=== PATIENT | female | born 1990 | race African-American/Black ===

== ENCOUNTER 2016-08-16 15:41 | Emergency (ER) | payer SELFPAY ==
[2016-08-16 15:51] VITALS: BP 110/80; BMI 21.2
--- NOTE | 2016-08-16 16:47 | DR.GENAD ---
HPI - PCP Primary Care Physician: NFD - HPI Comment HPI Comment: GETTING WORDE. SLIGHT DIZZINESS PRESENT. DENIES SINUS SYMTOMS. NO FEVER. - Complaint/Symptoms Chief Complaint Doctors Comments: LATE PERIOD, WEAKNESS AND BLURRED VISION TIMES ONE DAY. Chief Complaint:: "I HAVE BEEN HAVING BLURRY VISION. I FEEL LIKE I CAN'T STAND FOR LONG, LIKE I'M WEAK. I HAVEN'T HAD A PERIOD SINCE 2016." - Nurses notes reviewed Nurses Notes Review: Yes - Source History Provided: Patient - Mode of Arrival Mode of Arrival: Ambulatory - Timing Onset of Chief Complaint: 08/15/16 Came on: Suddenly - Duration Duration: Constant Duration: Days - Severity Severity: Moderate PMH - PMH Past Medical History: Yes Past Medical History: Hypertension Past Surgical History: No Surgical History: No History - Family History History of Family Medical Conditions: Yes Family Medical History: Diabetes Mellitus, Cancer, Hypertension - Social History Does patient currently use any type of tobacco product: Yes Have you used tobacco products in the last 12 months: Yes Type of Tobacco Use: Cigarettes How many years tobacco product used: 7 Does any household member use tobacco: No Alcohol Use: Occasionally Do you use any recreational Drugs:: No Lives With: Family Lives Where: Home - infectious screening In the last 2 months have you had wt loss of >10#?: NO Have you had fever, night sweats or hemotysis?: No Have you traveled outside the country in the last 6 months?: No Isolation: Standard ROS - Review of Systems Constitutional: Weakness, Fatigue. negative: Chills, Fever Eyes: No Symptoms Reported ENTM: No Symptoms Reported Respiratoy: No Symptoms Reported Cardiovascular: No Symptoms Reported Gastrointestinal/Abdominal: Nausea Genitourinary: No Symptoms Reported Neurological: Weakness, Dizziness Musculoskeletal: Muscle Pain Integumentary: No Symptoms Reported Hematologic/Lymphatic: No Symptoms Reported Endocrine: No Symptoms Reported All Other Systems: Reviewed and Negative PE - Vital Signs Vitals: Temperature 99.8 F Pulse Rate 109 Respiratory Rate 18 Blood Pressure [Left Arm] 110/68 Blood Pressure [Right Arm] 113/56 Blood Pressure 110/80 O2 Sat by Pulse Oximetry 100 - General Limitations: No Limitations General Appearance: Alert - Head Head Exam: Normal Inspection - Eyes Eye exam: Normal Appearance - ENT ENT Exam: Normal External Ear Exam External Ear Exam: Normal External Inspection TM/Canal Exam: Bilateral Normal Nose Exam: Normal Nose Exam Mouth Exam: Normal Inspection Throat Exam: Normal Inspection - Neck Neck Exam: Trachea Midline (`) - Chest Chest Inspection: Symmetric Chest Wall Rise - Respiratory Respiratory Exam: Normal Lung Sounds Bilat Respiratory Exam: Bilateral Clear to Auscultation - Cardiovascular Cardiovascular Exam: Regular Rate, Normal Rhythm, Normal Heart Sounds - Abdominal Exam Abdominal Exam: Normal Bowel Sounds, Soft. negative: Tenderness - Extremities Extremities Exam: Normal Inspection - Back Back Exam: Normal Inspection - Neurologic Neurological Exam: Alert, Oriented X3 - Psychiatric Psychiatric Exam: Normal Affect, Normal Mood - Skin Skin Exam: Normal Color MDM - Differential Diagnosis Differential Diagnosis: WEAKNESS, LATE PERIOD, DIZZINESS Course - Treatment Treatment: SEE ORDERS - Education/Counseling Education/Counseling: Patient, Education Educated On: Diagnosis, Needs for Follow Up ROR - Labs Reviewed Laboratory Results Reviewed?: Yes Result Diagrams: 08/16/16 17:00 08/16/16 17:00 Laboratory: WBC 6.2 X10^3/uL (3.6-10.0) 08/16/16 17:00 RBC 4.60 X10^6/uL (3.5-5.4) 08/16/16 17:00 Hgb 13.0 g/dL (12.0-16.0) 08/16/16 17:00 Hct 39.3 % (36.0-47.0) 08/16/16 17:00 MCV 85.3 fL (80.0-100.0) 08/16/16 17:00 MCH 28.2 pg (27.0-34.0) 08/16/16 17:00 MCHC 33.0 g/dL (33.0-35.0) 08/16/16 17:00 RDW 15.0 % (11.6-16.5) 08/16/16 17:00 Plt Count 245 X10^3/uL (150.0-450.0) 08/16/16 17:00 MPV 9.3 fL (7.4-11.0) 08/16/16 17:00 Neut % 50.0 % (42.0-75.0) 08/16/16 17:00 Lymph % 41.2 % (21.0-51.0) 08/16/16 17:00 [place] % 6.4 % (0.0-13.0) 08/16/16 17:00 Eos % 1.2 % (0.9-2.9) 08/16/16 17:00 Baso % 1.2 % (0.2-1.0) H 08/16/16 17:00 Neut # 3.1 x10^3/uL (2.2-4.8) 08/16/16 17:00 Lymph # 2.6 X10^3/uL (1.3-2.9) 08/16/16 17:00 [place] # 0.4 x10^3/uL (0.3-0.8) 08/16/16 17:00 Eos # 0.1 x10^3/uL (0.0-0.2) 08/16/16 17:00 Baso # 0.1 X10^3/uL (0.0-0.1) 08/16/16 17:00 Absolute Nucleated RBC 0.0 /100WBC 08/16/16 17:00 Sodium 141 mmol/L (136-145) 08/16/16 17:00 Corrected Sodium TNP 08/16/16 17:00 Potassium 3.9 mmol/L (3.5-5.1) 08/16/16 17:00 Chloride 105 mmol/L (98-107) 08/16/16 17:00 Carbon Dioxide 25.0 mmol/L (21-32) 08/16/16 17:00 BUN 10 mg/dL (7-18) 08/16/16 17:00 Creatinine 0.79 mg/dL (0.55-1.02) 08/16/16 17:00 Est GFR (MDRD) Af Amer > 60 (>60) 08/16/16 17:00 Est GFR (MDRD) Non-Af > 60 (>60) 08/16/16 17:00 Glucose 78 mg/dL (65-99) 08/16/16 17:00 Calcium 8.7 mg/dL (8.5-10.1) 08/16/16 17:00 Corrected Calcium TNP 08/16/16 17:00 Total Bilirubin 1.00 mg/dL (0.2-1.0) 08/16/16 17:00 AST 20 Units/L (15-37) 08/16/16 17:00 ALT 27 Units/L (12-78) 08/16/16 17:00 Alkaline Phosphatase 64 Units/L (46-116) 08/16/16 17:00 Total Protein 8.1 g/dL (6.4-8.2) 08/16/16 17:00 Albumin 4.0 g/dL (3.4-5.0) 08/16/16 17:00 Globulin 4.1 g/dL (2.5-4.5) 08/16/16 17:00 Albumin/Globulin Ratio 1.0 Ratio (1.1-2.1) L 08/16/16 17:00 HCG, Qual Negative <10 mIU/mL 08/16/16 17:00 Influenza A (H1N1) PCR Not detected (NOT DETECT) 08/16/16 17:38 Influenza Type A (PCR) Negative (NEGATIVE) 08/16/16 17:38 Influenza Type B (PCR) Negative (NEGATIVE) 08/16/16 17:38 - Diagnosis Discharge Problem: Weakness, Dizziness, Late period - Discharge Plan Disposition: 01 HOME, SELF-CARE Condition: Stable - Follow ups/Referrals Follow ups/Referrals: NFD,None [Primary Care Provider] - 3 days - Instructions Instructions: Weakness, [id number] Additional Instructions: RETURN TO ED IF WORSE.
[2016-08-16 17:13] LABS: BASOPHILS # (AUTO) 0.1 X10^3/uL (0.0-0.1); BASOPHILS % (AUTO) 1.2 % (0.2-1.0); EOSINOPHILS # (AUTO) 0.1 x10^3/uL (0.0-0.2); EOSINOPHILS % (AUTO) 1.2 % (0.9-2.9); HEMATOCRIT 39.3 % (36.0-47.0); LYMPHOCYTES # (AUTO) 2.6 X10^3/uL (1.3-2.9); LYMPHOCYTES % (AUTO) 41.2 % (21.0-51.0); MEAN CORPUSCULAR HEMOGLOBIN 28.2 pg (27.0-34.0); MEAN CORPUSCULAR VOLUME 85.3 fL (80.0-100.0); MEAN PLATELET VOLUME 9.3 fL (7.4-11.0); MONOCYTES # (AUTO) 0.4 x10^3/uL (0.3-0.8); MONOCYTES % (AUTO) 6.4 % (0.0-13.0); NEUTROPHILS # (AUTO) 3.1 x10^3/uL (2.2-4.8); PLATELET COUNT 245 X10^3/uL (150.0-450.0); WHITE BLOOD COUNT 6.2 X10^3/uL (3.6-10.0)
[2016-08-16 17:21] LABS: ALANINE AMINOTRANSFERASE 27 Units/L (12-78); ALKALINE PHOSPHATASE 64 Units/L (46-116); ASPARTATE AMINO TRANSFERASE 20 Units/L (15-37); BLOOD UREA NITROGEN 10 mg/dL (7-18); CALCIUM 8.7 mg/dL (8.5-10.1); CHLORIDE 105 mmol/L (98-107); CREATININE 0.79 mg/dL (0.55-1.02); GLUCOSE 78 mg/dL (65-99); SODIUM 141 mmol/L (136-145); TOTAL PROTEIN 8.1 g/dL (6.4-8.2); eGFR BLACK RACES > 60 (>60); eGFR NON BLACK RACES > 60 (>60)
[2016-08-16 17:22] LABS: SERUM PREGNANCY TEST, QUAL NEGATIVE <10 mIU/mL
== END 2016-08-16 17:45 | disposition home or self-care (01) ==
LOC: ER 15:59
DX: R53.1 Weakness (principal); R42 Dizziness and giddiness; N92.5 Other specified irregular menstruation
CPT/HCPCS: 36415; 80053; 84703; 85025; 87502; 87503; 99282; 99283

== ENCOUNTER 2016-11-22 07:02 | Emergency (ER) | payer SELFPAY ==
[2016-11-22 07:08] VITALS: BP 121/71; BMI 21.1
[2016-11-22] MEDS ORDERED: CIPRODEX OTIC DROPS (EAR) ONE (07:40)
--- NOTE | 2016-11-22 07:49 | DR.GENAD ---
HPI - PCP Primary Care Physician: MARCO A - HPI Comment HPI Comment: Right ear pain - Complaint/Symptoms Chief Complaint Doctors Comments: Right ear pain since 02:30 hrs this a.m. It is a sharp pain. She admitted to associated brownish drainage earlier. She denies fever. Chief Complaint:: PATIENT STATED THAT HER LEFT EYE IS KILLING HER. SHE STATED THAT IT IS DRAINING AND IS HURTING DOWN INTO HER THROAT. Self Treatment fo Chief Complaint: none - Nurses notes reviewed Nurses Notes Review: Yes - Source History Provided: Patient - Mode of Arrival Mode of Arrival: Ambulatory - Timing Onset of Chief Complaint: 11/22/16 Came on: Gradually - Duration Duration: Since Onset How lon Duration: Hours - Location Location: Right ear - Severity Severity: Moderate - Modifying Factors Worsens:: none Improves:: none - Associated Signs and Symptoms Associated Signs and Symptoms: ear discharge PMH - PMH Past Medical History: No Past Medical History: Hypertension Past Surgical History: No Surgical History: No History - Family History History of Family Medical Conditions: Yes Family Medical History: Diabetes Mellitus, Cancer, Hypertension - Social History Does patient currently use any type of tobacco product: Yes Have you used tobacco products in the last 12 months: Yes Type of Tobacco Use: Cigarettes Packs per day or dips/chews per day: 6 cigarrettes per day Does any household member use tobacco: No Alcohol Use: None Do you use any recreational Drugs:: No Lives Where: Home - infectious screening In the last 2 months have you had wt loss of >10#?: NO Have you had fever, night sweats or hemotysis?: No Have you traveled outside the country in the last 6 months?: No Isolation: Standard ROS - Review of Systems Constitutional: No Symptoms Reported Eyes: No Symptoms Reported ENTM: Ear Pain (right ), Ear Discharge (right) Respiratoy: No Symptoms Reported Cardiovascular: No Symptoms Reported Gastrointestinal/Abdominal: No Symptoms Reported Genitourinary: No Symptoms Reported Neurological: No Symptoms Reported Musculoskeletal: No Symptoms Reported Integumentary: No Symptoms Reported Hematologic/Lymphatic: No Symptoms Reported Endocrine: No Symptoms Reported Psychiatric: No Symptoms Reported PE - Vital Signs Vitals: Temperature 98.0 F Pulse Rate 110 Respiratory Rate 20 Blood Pressure [Left Arm] 110/68 Blood Pressure [Right Arm] 113/56 Blood Pressure 121/71 O2 Sat by Pulse Oximetry 100 - General Limitations: No Limitations General Appearance: Alert, In No Apparent Distress - Head Head Exam: Normal Inspection - Eyes Eye exam: Normal Appearance, PERRL, EOMI - ENT ENT Exam: Normal Exam, Normal Oropharynx External Ear Exam: Normal External Inspection TM/Canal Exam: Left Normal, Right Erythema, Right Bulging Nose Exam: Normal Nose Exam Mouth Exam: Normal Inspection Throat Exam: Normal Inspection - Neck Neck Exam: Normal Inspection - Chest Chest Inspection: Normal Inspection - Respiratory Respiratory Exam: Normal Lung Sounds Bilat Respiratory Exam: Bilateral Clear to Auscultation - Cardiovascular Cardiovascular Exam: Regular Rate, Normal Rhythm, +S1, +S2 - Abdominal Exam Abdominal Exam: Normal Inspection, Normal Bowel Sounds, Soft - Extremities Extremities Exam: Normal Inspection, Full ROM - Back Back Exam: Normal Inspection, Full ROM - Neurologic Neurological Exam: Alert, Oriented X3 - Psychiatric Psychiatric Exam: Normal Affect, Normal Mood - Skin Skin Exam: Warm, Dry, Intact, Normal Color MDM - Differential Diagnosis Differential Diagnosis: OTM; Perforated TM Course - Education/Counseling Education/Counseling: Patient Educated On: Treatment, Diagnosis, Prognosis, Needs for Follow Up - Diagnosis Discharge Problem: Otitis media - Discharge Plan Disposition: HOME, SELF-CARE Condition: Stable Prescriptions: Hydrocodone-Acet 5 mg/325 mg [NORCO 5 MG/325 MG *] 1 tab PO Q8H PRN #12 tab PRN Reason: - Follow ups/Referrals Follow ups/Referrals: NFD,None [Primary Care Provider] - 3 days - Instructions Instructions: Otitis Media, Adult, [id number]
[2016-11-22] MEDS ORDERED: NORCO 5/325 MG TAB PO PRN (07:56)
[2016-11-22] MEDS ORDERED: NORCO 5/325 MG TAB ONE (08:00)
[2016-11-22] MEDS ORDERED: CIPRODEX OTIC DROPS (EAR) AFF EAR ONE (08:06)
== END 2016-11-22 08:12 | disposition home or self-care (01) ==
LOC: ER 07:02
DX: H66.91 Otitis media, unspecified, right ear (principal)
CPT/HCPCS: 99282

== ENCOUNTER 2017-04-18 17:25 | Emergency (ER) | payer OTHER ==
[2017-04-18 17:29] VITALS: BMI 24.1
[2017-04-18 17:40] LABS: BILIRUBIN,URINE NEGATIVE (NEGATIVE); BLOOD/HEMOGLOBIN,URINE NEGATIVE (NEGATIVE); GLUCOSE, URINE NEGATIVE (NEGATIVE); KETONES,URINE 1+ (NEGATIVE); LEUKOCYTE ESTERASE ,URINE 1+ (NEGATIVE); NITRITES,URINE NEGATIVE (NEGATIVE); PH,URINE 6.5 (5.0 - 8.0); PROTEIN,URINE 1+ (NEGATIVE); UROBILINOGEN,URINE 2+ (NORMAL)
[2017-04-18 17:48] LABS: APPEARANCE,URINE CLEAR (CLEAR); BACTERIA,URINE TRACE /HPF (NEGATIVE); CALCIUM OXALATE CRYSTALS,UR FEW /HPF (NEGATIVE); COLOR,URINE YELLOW (YELLOW); RBC,URINE 0-3 /HPF (NEGATIVE); SQUAMOUS EPITHELIAL CELL,UR RARE /HPF (NEGATIVE)
--- NOTE | 2017-04-18 18:41 | ED.ABDFE ---
HPI - Time seen Time seen: 18:40 - PCP Primary Care Physician: JENNIFER - HPI Comment HPI Comment: NO VAGINAL BLEEDING. NO DYSURIA. - Complaint Chief Complaint Doctors Comments: PAIN LOWER BACK AND LOWER ABD FOR SEVERAL HOURS. Chief Complaint:: PT. IS 3.5 MONTHS WITH C/O LOWER ABDOMINAL AND LOWER BACK PAIN. PT. DENIES VAGINAL BLEEDING OR DISCHARGE. PT. ALSO DENIES INJURY. . EDC: 10/20/18 - Nurses notes reviewed Nurses Notes Review: Yes - Source History Provided: Patient - Mode of arrival Mode of Arrival: Ambulatory - Timing Onset of Chief Complaint: 04/18/17 Came on: Suddenly - Duration Duration: Constant Duration: Hours - Location Location: RLQ, LLQ, Suprapubic - Severity Severity: Moderate - Quality Quality: Sharp - Context Onset: Suddenly History of: Current - Modifying Worsening Factors: Nothing Improving Factors: Nothing - Associated signs and symptoms Associated Signs and Symptoms: None PMH - PMH Past Medical History: Yes Past Medical History: Anemia, Hypertension Past Surgical History: No Surgical History: No History - Family History History of Family Medical Conditions: Yes Family Medical History: Diabetes Mellitus, Cancer, Hypertension - Social History Does patient currently use any type of tobacco product: No Have you used tobacco products in the last 12 months: Yes Type of Tobacco Use: None Does any household member use tobacco: No Alcohol Use: None Do you use any recreational Drugs:: No Lives With: Family Lives Where: Home - infectious screening In the last 2 months have you had wt loss of >10#?: NO Have you had fever, night sweats or hemotysis?: No Have you traveled outside the country in the last 6 months?: No Isolation: Standard ROS - Review of Systems Constitutional: No Symptoms Reported Eyes: No Symptoms Reported ENTM: No Symptoms Reported Respiratoy: No Symptoms Reported Cardiovascular: No Symptoms Reported Gastrointestinal/Abdominal: Abdominal Pain Genitourinary: No Symptoms Reported Neurological: No Symptoms Reported Musculoskeletal: Back Pain, Back Integumentary: No Symptoms Reported Hematologic/Lymphatic: No Symptoms Reported Endocrine: No Symptoms Reported All Other Systems: Reviewed and Negative PE - Vital Signs Vitals: Temperature 98.8 F Pulse Rate [Left Radial] 102 Pulse Rate 118 Respiratory Rate 18 Blood Pressure [Left Arm] 120/62 Blood Pressure [Right Arm] 113/56 Blood Pressure 120/68 O2 Sat by Pulse Oximetry 98 - General Limitations: No Limitations General Appearance: Alert - Head Head Exam: Normal Inspection - Eyes Eye exam: Normal Appearance - ENT ENT Exam: Normal External Ear Exam - Neck Neck Exam: Trachea Midline - Chest Chest Inspection: Symmetric Chest Wall Rise - Respiratory Respiratory Exam: Normal Lung Sounds Bilat Respiratory Exam: Bilateral Clear to Auscultation - Cardiovascular Cardiovascular Exam: Regular Rate, Normal Rhythm, Normal Heart Sounds - Abdominal Exam Abdominal Exam: Normal Bowel Sounds, Soft. negative: Tenderness - Rectal Rectal Exam: Deferred - Back Back Exam: Normal Inspection - Extremeties Extremities Exam: Normal Inspection - External Exam: Female: Deferred : Speculum Exam (Female): Deferred : Bimanual Exam (female): Deferred - Neurologic Neurological Exam: Alert, Oriented X3 - Psychiatric Psychiatric Exam: Normal Affect, Normal Mood - Skin Skin Exam: Normal Color MDM - Differential Diagnosis Differential Diagnosis- Considerations may include:: Urinary tract infection, Urolithiasis Course - Treatment Treatment: SEE ORDERS. - Consultation Consultation Comments: DISCUSS PATIENT WITH DR. RODRIGUEZ. WILL FOLLOW UP IN THE OFFICE. - Education/Counseling Education/Counseling: Patient, Education Educated On: Treatment, Diagnosis, Needs for Follow Up ROR - Labs Reviewed Laboratory Results Reviewed?: Yes Result Diagrams: 04/18/17 18:49 04/18/17 18:49 Laboratory: WBC 6.7 X10^3/uL (3.6-10.0) 04/18/17 18:49 RBC 4.07 X10^6/uL (3.5-5.4) 04/18/17 18:49 Hgb 11.9 g/dL (12.0-16.0) L 04/18/17 18:49 Hct 34.5 % (36.0-47.0) L 04/18/17 18:49 MCV 85.0 fL (80.0-100.0) 04/18/17 18:49 MCH 29.3 pg (27.0-34.0) 04/18/17 18:49 MCHC 34.5 g/dL (33.0-35.0) 04/18/17 18:49 RDW 13.8 % (11.6-16.5) 04/18/17 18:49 Plt Count 229 X10^3/uL (150.0-450.0) 04/18/17 18:49 MPV 8.3 fL (7.4-11.0) 04/18/17 18:49 Neut % 84.4 % (42.0-75.0) H 04/18/17 18:49 Lymph % 11.0 % (21.0-51.0) L 04/18/17 18:49 [place] % 4.2 % (0.0-13.0) 04/18/17 18:49 Eos % 0.1 % (0.9-2.9) L 04/18/17 18:49 Baso % 0.3 % (0.2-1.0) 04/18/17 18:49 Neut # 5.7 x10^3/uL (2.2-4.8) H 04/18/17 18:49 Lymph # 0.7 X10^3/uL (1.3-2.9) L 04/18/17 18:49 [place] # 0.3 x10^3/uL (0.3-0.8) 04/18/17 18:49 Eos # 0.0 x10^3/uL (0.0-0.2) 04/18/17 18:49 Baso # 0.0 X10^3/uL (0.0-0.1) 04/18/17 18:49 Absolute Nucleated RBC 0.0 /100WBC 04/18/17 18:49 Sodium 132 mmol/L (136-145) L 04/18/17 18:49 Corrected Sodium TNP 04/18/17 18:49 Potassium 3.6 mmol/L (3.5-5.1) 04/18/17 18:49 Chloride 99 mmol/L (98-107) 04/18/17 18:49 Carbon Dioxide 23.9 mmol/L (21-32) 04/18/17 18:49 BUN 8 mg/dL (7-18) 04/18/17 18:49 Creatinine 0.50 mg/dL (0.55-1.02) L 04/18/17 18:49 Est GFR (MDRD) Af Amer > 60 (>60) 04/18/17 18:49 Est GFR (MDRD) Non-Af > 60 (>60) 04/18/17 18:49 Glucose 82 mg/dL (65-99) 04/18/17 18:49 Calcium 8.9 mg/dL (8.5-10.1) 04/18/17 18:49 Corrected Calcium 9.5 mg/dL (8.5-10.1) 04/18/17 18:49 Total Bilirubin 0.40 mg/dL (0.2-1.0) 04/18/17 18:49 AST 17 Units/L (15-37) 04/18/17 18:49 ALT 16 Units/L (12-78) 04/18/17 18:49 Alkaline Phosphatase 61 Units/L (46-116) 04/18/17 18:49 Total Protein 7.5 g/dL (6.4-8.2) 04/18/17 18:49 Albumin 3.3 g/dL (3.4-5.0) L 04/18/17 18:49 Globulin 4.2 g/dL (2.5-4.5) 04/18/17 18:49 Albumin/Globulin Ratio 0.8 Ratio (1.1-2.1) L 04/18/17 18:49 HCG, Quant 87612 mIU/mL (0-6) H 04/18/17 18:49 Specimen Type Clean catch urine 04/18/17 17:32 Urine Color Yellow (YELLOW) 04/18/17 17:32 Urine Appearance Clear (CLEAR) 04/18/17 17:32 Urine pH 6.5 (5.0 - 8.0) 04/18/17 17:32 Ur Specific [place] 1.015 (1.000-1.030) 04/18/17 17:32 Urine Protein 1+ (NEGATIVE) 04/18/17 17:32 Urine Glucose (UA) Negative (NEGATIVE) 04/18/17 17:32 Urine Ketones 1+ (NEGATIVE) 04/18/17 17:32 Urine Occult Blood Negative (NEGATIVE) 04/18/17 17:32 Urine Nitrite Negative (NEGATIVE) 04/18/17 17:32 Urine Bilirubin Negative (NEGATIVE) 04/18/17 17:32 Urine Urobilinogen 2+ (NORMAL) 04/18/17 17:32 Ur Leukocyte Esterase 1+ (NEGATIVE) 04/18/17 17:32 Urine RBC 0-3 /HPF (NEGATIVE) 04/18/17 17:32 Urine WBC 0-3 /HPF (NEGATIVE) 04/18/17 17:32 Ur Squamous Epith Cells Rare /HPF (NEGATIVE) 04/18/17 17:32 Calcium Oxalate Crystal Few /HPF (NEGATIVE) 04/18/17 17:32 Urine Bacteria Trace /HPF (NEGATIVE) 04/18/17 17:32 Ur Culture Indicated? No/not indicated 04/18/17 17:32 - XRAY XRAY Interpreted by: Radiologist XRAY Findings: REPORT DISCUSS WITH PATIENT. - Diagnosis Discharge Problem: Abdominal pain affecting Back pain affecting Qualifiers: Trimester: first trimester Qualified Code(s): O26.891 - Other specified related conditions, first trimester UTI (urinary tract infection) Qualifiers: Urinary tract infection type: site unspecified Hematuria presence: without hematuria Qualified Code(s): N39.0 - Urinary tract infection, site not specified - Discharge Plan Disposition: 01 HOME, SELF-CARE Condition: Stable Prescriptions: Nitrofurantoin Macro [Macrobid Cap 100 mg Ext Rel] 100 mg PO BID #14 cap - Follow ups/Referrals Follow ups/Referrals: MARCELA RODRIGUEZ [Primary Care Provider] - 3 days - Instructions Instructions: Back Pain in , Pelvic Rest Additional Instructions: RETURN TO ED IF WORSE. TYLENOL 650MG PO Q4H NEEDED FOR PAIN.
[2017-04-18 18:57] LABS: BASOPHILS % (AUTO) 0.3 % (0.2-1.0); EOSINOPHILS % (AUTO) 0.1 % (0.9-2.9); HEMATOCRIT 34.5 % (36.0-47.0); HEMOGLOBIN 11.9 g/dL (12.0-16.0); LYMPHOCYTES # (AUTO) 0.7 X10^3/uL (1.3-2.9); MEAN CORPUSCULAR HEMOGLOBIN 29.3 pg (27.0-34.0); MEAN CORPUSCULAR HGB CONC 34.5 g/dL (33.0-35.0); MEAN PLATELET VOLUME 8.3 fL (7.4-11.0); MONOCYTES # (AUTO) 0.3 x10^3/uL (0.3-0.8); MONOCYTES % (AUTO) 4.2 % (0.0-13.0); NEUTROPHILS # (AUTO) 5.7 x10^3/uL (2.2-4.8); NEUTROPHILS % (AUTO) 84.4 % (42.0-75.0); PLATELET COUNT 229 X10^3/uL (150.0-450.0); RED BLOOD COUNT 4.07 X10^6/uL (3.5-5.4); RED CELL DISTRIBUTION WIDTH 13.8 % (11.6-16.5); WHITE BLOOD COUNT 6.7 X10^3/uL (3.6-10.0)
[2017-04-18 19:10] LABS: ALANINE AMINOTRANSFERASE 16 Units/L (12-78); ALBUMIN 3.3 g/dL (3.4-5.0); ALKALINE PHOSPHATASE 61 Units/L (46-116); ASPARTATE AMINO TRANSFERASE 17 Units/L (15-37); BLOOD UREA NITROGEN 8 mg/dL (7-18); CALCIUM 8.9 mg/dL (8.5-10.1); CARBON DIOXIDE 23.9 mmol/L (21-32); CHLORIDE 99 mmol/L (98-107); COR CA(FOR HYPOALB) 9.5 mg/dL (8.5-10.1); SODIUM 132 mmol/L (136-145); TOTAL PROTEIN 7.5 g/dL (6.4-8.2); eGFR BLACK RACES > 60 (>60); eGFR NON BLACK RACES > 60 (>60)
[2017-04-18 19:34] LABS: HCG,QUANTITATIVE 46658 mIU/mL (0-6)
--- NOTE | 2017-04-18 20:50 | US ---
HISTORY: Low pelvic pain, back pain, feeling contractions Study: OB ultrasound greater than 14 weeks Comparison: None Technique: Multiple grayscale and color flow Doppler images of the pelvis were obtained with focused evaluation of the fetus. Findings: A single living intrauterine gestation is identified with heart tones of 166 beats per minute. A cephalic presentation is observed. The placenta is anterior. Amniotic fluid volume appears grossly adequate. The placenta is low lying, not unexpected for early . Detailed anatomic screening was not performed. The anterior uterine wall appears thickened suggestive of a uterine contraction. There is increased color flow seen in this region. No definite retroplacen lizbet hematoma is identified. Value (cm) Estimated Gestational Age BPD 2.9 15 weeks 2 days HC 10.6 15 weeks 1 day AC 9.2 15 weeks 2 days FL 1.7 15 weeks 1 day Average age by ultrasound: 15 weeks 2 days BAKARI by ultrasound: 10/08/2017 Estimated weight: 119 g IMPRESSION: Single living intrauterine gestation as detailed above measuring 15 weeks 2 days with heart rat e 166 bpm. There is thickening of the anterior uterine wall with increased color flow suggestive of u terine contraction. No definite retroplacental hematoma is seen. Continued follow-up is recommended. Reported By:
[2017-04-18] MEDS ORDERED: TYLENOL 500 MG TAB EXTRA STRENGTH PO ONE ×3 (20:59→21:23)
[2017-04-18] MEDS ORDERED: MACROBID CAP 100 MG EXT REL PO ONE ×2 (21:52→21:59)
[2017-04-18 22:08] VITALS: BP 120/62
== END 2017-04-18 22:04 | disposition home or self-care (01) ==
LOC: ER 17:31
DX: R10.31 Right lower quadrant pain (principal); O26.891 Other specified pregnancy related conditions, first trimester; N39.0 Urinary tract infection, site not specified; Z3A.15 15 weeks gestation of pregnancy
CPT/HCPCS: 36415; 76801; 80053; 81001; 84702; 85025; 99283; 99284

== ENCOUNTER 2017-08-01 15:58 | Emergency (ER) | payer OTHER ==
[2017-08-01 16:18] VITALS: BMI 27.4
[2017-08-01 16:18] LABS: BILIRUBIN,URINE NEGATIVE (NEGATIVE); BLOOD/HEMOGLOBIN,URINE NEGATIVE (NEGATIVE); GLUCOSE, URINE NEGATIVE (NEGATIVE); KETONES,URINE NEGATIVE (NEGATIVE); LEUKOCYTE ESTERASE ,URINE NEGATIVE (NEGATIVE); NITRITES,URINE NEGATIVE (NEGATIVE); PROTEIN,URINE NEGATIVE (NEGATIVE); UROBILINOGEN,URINE NORMAL (NORMAL)
[2017-08-01 16:19] VITALS: BP 117/61
[2017-08-01 16:30] LABS: APPEARANCE,URINE CLEAR (CLEAR); BACTERIA,URINE TRACE /HPF (NEGATIVE); COLOR,URINE YELLOW (YELLOW); RBC,URINE NONE SEEN /HPF (NONE SEEN); SQUAMOUS EPITHELIAL CELL,UR FEW /HPF (NEGATIVE)
== END 2017-08-01 16:42 | disposition home or self-care (01) ==
LOC: ER 15:59
DX: R10.2 Pelvic and perineal pain (principal); Z3A.00 Weeks of gestation of pregnancy not specified
CPT/HCPCS: 81001; 96365; 99284